=== PATIENT | male | born 2000 | race Caucasian/White ===

== ENCOUNTER → 2018-07-01 | Outpatient (CLI) | payer OTHER ==
--- NOTE | 2018-07-01 13:20 | RADIOLOGY IMAGING REPORT ---
FACILITY: [facility] - [place] PATIENT NAME: Tyson Amaya : 2000 MR: [id number] V: [id number] EXAM DATE: [id number] ORDERING PHYSICIAN: BLANCA MOHAN TECHNOLOGIST: Location: [facility] - [place], [place] Patient: Tyson Amaya : 2000 Visit/Account:[id number] Date of Sevice: 07/01/2018 Exam type: HAND COMPLETE RIGHT History: Injury one week ago with bruising and swelling at the thumb Comparison: None. Findings: There is no evidence of acute fracture or dislocation involving the right hand. No radial opaque sof t tissue foreign body seen. There suggestion of mild soft tissue swelling surrounding the first carp ometacarpal articulation IMPRESSION: 1. Suggestion of mild soft tissue spine stranding the first carpometacarpal articulation although no gross evidence of acute fracture or dislocation seen Report Dictated By: Mary Kay Dougherty MD at 07/01/2018 1:15 PM Report E-Signed By: Mary Kay Dougherty MD at 07/01/2018 1:17 PM WSN:[email or web address]
== END ==
LOC: RAD 09:55
PROVIDERS: ATTEND Family Medicine
DX: M79.644 Pain in right finger(s) (principal)